=== PATIENT | male | born 1945 | race Caucasian/White ===

== ENCOUNTER 2018-03-01 15:35 | Outpatient (REF) | payer BC, SELFPAY ==
[2018-03-01 21:56] LABS: HCT 44.6 % (40.0-50.0); HGB 15.7 g/dL (13.5-17.5); Mean Corp. HGB Concentration 35.2 g/dL (32.0-36.0); Mean Corpuscular Hemoglobin 31.3 pg (27.0-33.0); Mean Corpuscular Volume 88.8 fL (80-95); Mean Platelet Volume 10.8 fL (8.0-11.0); Platelet Count 252 x1000/uL (130-400); RBC 5.02 m/cumm (4.50-6.00); RBC Distribution Width 13.3 % (11.8-14.1); White Blood Cell Count 6.36 k/cumm (4.4-10.8)
[2018-03-01 22:17] LABS: Anion Gap 7.5 mmol/L (3-11); BUN 16 mg/dL (7-18); CO2 31.5 mmol/L (21.0-32.0); CREATININE 0.98 mg/dL (0.70-1.30); Calcium 8.9 mg/dL (8.5-10.1); Chloride 96 mmol/L (98-107); Glucose 104 mg/dL (70-100); Potassium 3.5 mmol/L (3.5-5.1); Sodium 135 mmol/L (136-145); TSH (W/Ref FT4) 1.49 uIU/mL (0.358-3.74)
== END 2018-03-01 15:55 ==
LOC: NCHCN 15:35
PROVIDERS: PCP Family Medicine; Referring Provider Family Medicine; Visit Provider Family Medicine
DX: I48.91 Unspecified atrial fibrillation (principal)
CPT/HCPCS: 80048; 85027; 84443

== ENCOUNTER 2018-03-28 01:11 | Outpatient (CLI) | payer BC, SELFPAY ==
--- NOTE | 2018-04-04 15:30 | HOLTER_ITS ---
DATE OF READING: April 04, 2018 Monitor placed 48 hours. Atrial fibrillation throughout recording. Nocturnal heart rates approximately 60-80 bpm. Daytime he art rates approximately 90-110 bpm. Very frequent single PVC versus aberrantly conducted beat, 5215 total, 2.3% total beat. Nocturnal heart rates as low as 40-45 bpm, atrial fibrillation. No symptoms. Average heart rate 80 bpm, range 54-161 bpm.
== END 2018-03-28 01:31 ==
PROVIDERS: PCP Family Medicine; Visit Provider Family Medicine
DX: I48.91 Unspecified atrial fibrillation (principal); I49.3 Ventricular premature depolarization
CPT/HCPCS: 93225

== ENCOUNTER 2018-04-01 08:35 | Outpatient (CLI) | payer BC, SELFPAY | END 2018-04-01 08:55 | PROVIDERS: PCP Family Medicine; Visit Provider Family Medicine | DX: I48.91 Unspecified atrial fibrillation (principal); I49.3 Ventricular premature depolarization | CPT/HCPCS: 93226 ==

== ENCOUNTER 2018-04-05 00:08 | Outpatient (CLI) | payer BC, SELFPAY ==
--- NOTE | 2018-04-05 10:30 | MERGE_ITS ---
*[facility]* *[facility]* [address] [place] [address] Date of study: 04/05/2018 Transthoracic Echocardiography M-mode, complete 2D, complete spectral Doppler, and color Doppler *STUDY CONCLUSIONS* Summary: 1. Left ventricle: The cavity size was normal. Wall thickness was increased in a pattern of mild LVH. There was moderate asymmetric hypertrophy of the septum at 1.5 cm. Systolic function was normal. The estimated ejection fraction was 60-65%. There was no dynamic obstruction. Wall motion was normal; there were no regional wall motion abnormalities. 2. Aortic valve: Trileaflet; normal thickness, mildly calcified leaflets. There was mild to moderate regurgitation. 3. Ascending aorta: The ascending aorta was moderately dilated at 4.2 cm. 4. Mitral valve: There was mild to moderate regurgitation. 5. Left atrium: The atrium was severely dilated. 6. Right ventricle: The cavity size was normal. Wall thickness was normal. Systolic function was normal. 7. Right atrium: The atrium was dilated. *PATIENT PRESENTATION* Height: 170.2cm ((67in) ) S/D Pressure: 130 / 81 Weight: 98kg ((215.5lb) ) BSA: 2.19m^2 Test start time: 10:40 AM. Test stop time: 11:50 AM. ORDERING Sophie Reyes REFERRING Sophie Reyes PERFORMING Unknown PERFORMING [facility] ACCOUNTANT AUDITOR RT Sukhjinder AlcocerR)(MAGAN)ELLA *PROCEDURE DATA* Procedure information: The patient was identified by two identifiers. This study was interpreted by [facility]. Pertinent images and digital data are archived for permanent storage and are available for subsequent review. Comparison was made to the study of 11/05/2014. Study status: Routine. Transthoracic echocardiography. M-mode, complete 2D, complete spectral Doppler, and color Doppler. A Transthoracic Echocardiogram was performed. Scanning was performed from the parasternal, apical, subcostal, and suprasternal notch acoustic windows. Images were obtained using an [id number] cardiac ultrasound machine. Image quality was adequate. Study completion: The patient tolerated the procedure well. There were no complications. History: PMH: Atrial fibrillation. *CARDIAC ANATOMY* Left ventricle: The cavity size was normal. Wall thickness was increased in a pattern of mild LVH. There was moderate asymmetric hypertrophy of the septum at 1.5 cm. Systolic function was normal. The estimated ejection fraction was 60-65%. There was no dynamic obstruction. Wall motion was normal; there were no regional wall motion abnormalities. The study was not technically sufficient to allow evaluation of LV diastolic dysfunction due to atrial fibrillation. Aortic valve: Trileaflet; normal thickness, mildly calcified leaflets. Mobility was not restricted. Doppler: Transvalvular velocity was within the normal range. There was no stenosis. There was mild to moderate regurgitation. VTI ratio of LVOT to aortic valve: 0.64. Valve area (VTI): 2cm^2. Indexed valve area (VTI): 0.9cm^2/m^2. Peak velocity ratio of LVOT to aortic valve: 0.59. Valve area (Vmax): 1.9cm^2. Indexed valve area (Vmax): 0.8cm^2/m^2. Mean velocity ratio of LVOT to aortic valve: 0.64. Valve area (Vmean): 2cm^2. Indexed valve area (Vmean): 0.9cm^2/m^2. Mean gradient (S): 4.5mm Hg. Peak gradient (S): 7.8mm Hg. Aorta: Aortic root: The aortic root was at upper normal limits. Ascending aorta: The ascending aorta was moderately dilated at 4.2 cm. Aortic arch: The aortic arch was normal in size. Mitral valve: Structurally normal valve. Mobility was not restricted. Doppler: Transvalvular velocity was within the normal range. There was no evidence for stenosis. There was mild to moderate regurgitation. Valve area by pressure half-time: 3.7cm^2. Indexed valve area by pressure half-time: 1.7cm^2/m^2. Left atrium: The atrium was severely dilated. Right ventricle: The cavity size was normal. Wall thickness was normal. Systolic function was normal. Pulmonic valve: Structurally normal valve. Doppler: Transvalvular velocity was within the normal range. There was no evidence for stenosis. There was trivial regurgitation. Peak gradient (S): 2mm Hg. Tricuspid valve: Structurally normal valve. Doppler: Transvalvular velocity was within the normal range. There was no evidence for stenosis. There was mild regurgitation. Pulmonary artery: Pulmonary systolic pressure was within the normal range. Right atrium: The atrium was dilated. Pericardium: There was no pericardial effusion. Systemic veins: Inferior vena cava: Well visualized. The vessel was patent and normal in size. The respirophasic diameter changes were in the normal range (greater than or equal to 50%). Baseline ECG: Atrial fibrillation. Measurements Left ventricle Value Reference LV ID, ED, PLAX 5.0 cm 3.5 - 6.0 LV ID, ES, PLAX 3.6 cm 2.1 - 4.0 LV PW thickness, ED, PLAX 1.1 cm LV end-diastolic volume, 1-p A2C 68 ml LV ejection fraction, 1-p A2C 49 % LV end-diastolic volume, 1-p A4C 75 ml LV ejection fraction, 1-p A4C 49 % LV e', lateral 0.134 m/sec LV E/e', lateral 5 LV e', medial 0.064 m/sec LV E/e', medial 10 LV e', average 0.099 m/sec LV E/e', average 6 Ventricular septum Value Reference IVS thickness, ED, PLAX 1.5 cm LVOT Value Reference LVOT ID, A-P 2.0 cm LVOT area 3.1 cm^2 LVOT peak velocity, S 0.83 m/sec LVOT mean velocity, S 0.65 m/sec LVOT VTI, S 16.6 cm LVOT peak gradient, S 2.8 mm Hg LVOT mean gradient, S 1.8 mm Hg Stroke volume (SV), LVOT DP 52 ml Stroke index (SV/bsa), LVOT DP 24 ml/m^2 Aortic valve Value Reference Aortic valve peak velocity, S 1.4 m/sec Aortic valve mean velocity, S 1.02 m/sec Aortic valve VTI, S 26.0 cm Aortic mean gradient, S 4.5 mm Hg Aortic peak gradient, S 7.8 mm Hg VTI ratio, LVOT/AV 0.64 Aortic valve area, VTI 2 cm^2 Velocity ratio, peak, LVOT/AV 0.59 Aortic valve area, peak velocity 1.9 cm^2 Velocity ratio, mean, LVOT/AV 0.64 Aortic valve area, mean velocity 2 cm^2 Aortic valve area/bsa, mean velocity 0.9 cm^2/m^2 Aortic regurg velocity, ED 4.63 m/sec Aortic regurg gradient, ED 85.8 mm Hg Aorta Value Reference Aortic root ID, ED 3.7 cm Ascending aorta ID, A-P, S 4.2 cm RVOT Value Reference RVOT VTI, S 11.5 cm Left atrium Value Reference LA ID, A-P, ES 4.3 cm LA ID/bsa, A-P 2.0 cm/m^2 <=2.2 LA area, ES, A4C (H) 29.4 cm^2 8.8 - 23.4 LA area, ES, A2C 30 cm^2 LA volume/bsa, ES, 1-p A4C 53 ml/m^2 LA volume, ES, 2-p 104 ml LA volume/bsa, ES, 2-p 48 ml/m^2 LA/aortic root ratio 1.18 Mitral valve Value Reference Mitral E-wave peak velocity 0.64 m/sec Mitral deceleration time 207 ms 150 - 230 Mitral pressure half-time 60 ms Mitral valve area, PHT, DP 3.7 cm^2 Tricuspid valve Value Reference Tricuspid regurg peak velocity 1.6 m/sec Tricuspid peak RV-RA gradient 10.4 mm Hg Right atrium Value Reference RA area, ES, A4C (H) 21.2 cm^2 8.3 - 19.5 Pulmonic valve Value Reference Pulmonic peak gradient, S 2 mm Hg Legend: (L) and (H) bre values outside specified reference range. I have personally reviewed the images and have reviewed and edited the reported findings. Electronically signed by Cezar De La Cruz 04/05/2018 13:10
== END 2018-04-05 00:28 ==
PROVIDERS: PCP Family Medicine; Visit Provider Family Medicine
DX: I48.91 Unspecified atrial fibrillation (principal); I51.7 Cardiomegaly; I35.1 Nonrheumatic aortic (valve) insufficiency; I34.0 Nonrheumatic mitral (valve) insufficiency
CPT/HCPCS: 93306

== ENCOUNTER 2018-11-18 02:34 | Outpatient (CLI) | payer BC, SELFPAY ==
[2018-11-21 11:20] LABS: Lyme Ab w Rflx to Lyme Confirm Negative
== END 2018-11-18 02:54 ==
PROVIDERS: PCP Family Medicine; Visit Provider Family Medicine
DX: R21 Rash and other nonspecific skin eruption (principal); W57.XXXA Bitten or stung by nonvenomous insect and other nonvenomous arthropods, initial encounter; T14.8XXA Other injury of unspecified body region, initial encounter
CPT/HCPCS: 36415; 86618

== ENCOUNTER 2019-04-07 10:45 | Outpatient (REF) | payer BC, SELFPAY ==
[2019-04-07 19:21] LABS: Anion Gap 7.2 mmol/L (3-11); BUN 13 mg/dL (7-18); CO2 31.8 mmol/L (21.0-32.0); Calcium 9.4 mg/dL (8.5-10.1); Chloride 98 mmol/L (98-107); Glucose 92 mg/dL (70-100); Potassium 3.9 mmol/L (3.5-5.1); Sodium 137 mmol/L (136-145)
== END 2019-04-07 11:05 ==
LOC: NCHCN 10:45
PROVIDERS: PCP Family Medicine; Visit Provider Family Medicine
DX: Z00.00 Encounter for general adult medical examination without abnormal findings (principal); I48.91 Unspecified atrial fibrillation; I10 Essential (primary) hypertension; E87.6 Hypokalemia
CPT/HCPCS: 80048

== ENCOUNTER 2019-06-29 13:44 | Outpatient (REF) | payer BC, SELFPAY ==
[2019-06-29 19:37] LABS: Uric Acid 7.5 mg/dL (3.5-7.2)
== END 2019-06-29 14:04 ==
LOC: NCHCN 13:44
PROVIDERS: PCP Family Medicine; Visit Provider Specialist/Technologist Athletic Trainer
DX: M79.672 Pain in left foot (principal)
CPT/HCPCS: 84550

== ENCOUNTER 2019-10-11 08:52 | Outpatient (CLI) | payer BC, SELFPAY ==
[2019-10-12 19:17] LABS: COVID-19 RT-PCR Result Not Detected ((See Note))
== END 2019-10-11 09:12 ==
PROVIDERS: PCP Family Medicine; Visit Provider Family Medicine
DX: M79.10 Myalgia, unspecified site (principal); Z20.828 Contact with and (suspected) exposure to other viral communicable diseases
CPT/HCPCS: 87449; U0003

== ENCOUNTER 2020-05-07 12:38 | Outpatient (REF) | payer BC, SELFPAY ==
[2020-05-07 19:31] LABS: HCT 46.9 % (40.0-50.0); HGB 16.2 g/dL (13.5-17.5); MCH 31.2 pg (27.0-33.0); MCHC 34.5 % (32.0-36.0); MCV 90.2 fL (80-95); MPV 10.8 fL (8.0-11.0); Platelet Count 256 10^3/uL (130-400); RDW 12.6 % (11.8-14.1); RDW-SD 41.4 fL; WBC 5.17 10^3/uL (4.4-10.8)
[2020-05-07 19:43] LABS: ALT 31 U/L (16-63); AST 25 U/L (15-37); Alkaline Phosphatase 38 U/L (46-116); Anion Gap 7.9 mmol/L (3-11); BUN 17 mg/dL (7-18); Bilirubin, Total 0.6 mg/dL (0.2-1.0); CO2 27.1 mmol/L (21.0-32.0); Calcium 9.3 mg/dL (8.5-10.1); Chloride 99 mmol/L (98-107); Glucose 97 mg/dL (74-106); Magnesium 1.9 mg/dL (1.8-2.4); Potassium 3.6 mmol/L (3.5-5.1); Sodium 134 mmol/L (136-145); Total Protein 7.1 g/dL (6.4-8.2)
[2020-05-08 20:44] LABS: PSA, Screening 1.5 ng/mL (0.0-6.5)
== END 2020-05-07 12:58 ==
LOC: NCHCN 12:38
PROVIDERS: PCP Family Medicine; Visit Provider Family Medicine
DX: Z00.00 Encounter for general adult medical examination without abnormal findings (principal); I10 Essential (primary) hypertension; I48.91 Unspecified atrial fibrillation; Z12.5 Encounter for screening for malignant neoplasm of prostate
CPT/HCPCS: 80053; 84153; 85027; 83735

== ENCOUNTER 2021-05-15 11:30 | Outpatient (REF) | payer MEDICARE, SELFPAY ==
[2021-05-15 15:02] LABS: MCH 31.4 pg (27.0-33.0); MCHC 34.9 % (32.0-36.0); MCV 90.1 fL (80-95); Platelet Count 226 10^3/uL (130-400); RBC 4.77 10^6/uL (4.36-5.78); RDW 12.5 % (11.8-14.1); RDW-SD 41.1 fL; WBC 4.97 10^3/uL (4.4-10.8)
[2021-05-15 15:15] LABS: ALT 32 U/L (16-63); AST 23 U/L (15-37); Albumin 3.8 g/dL (3.4-5.0); Alkaline Phosphatase 41 U/L (46-116); Anion Gap 8.7 mmol/L (3-11); BUN 14 mg/dL (7-18); Bilirubin, Total 0.5 mg/dL (0.2-1.0); CO2 31.3 mmol/L (21.0-32.0); Calculated LDL 104 mg/dL (<100); Chloride 98 mmol/L (98-107); Cholesterol 174 mg/dL (<200); Glucose 97 mg/dL (74-106); HDL Cholesterol 47 mg/dL (40-60); Potassium 3.3 mmol/L (3.5-5.1); Sodium 138 mmol/L (136-145); Total Protein 6.9 g/dL (6.4-8.2); Triglyceride 115 mg/dL (<150)
== END 2021-05-15 11:31 | disposition home or self-care (01) ==
LOC: NCHCN 11:30
PROVIDERS: PCP Family Medicine; Visit Provider Family Medicine
DX: I10 Essential (primary) hypertension (principal); E87.6 Hypokalemia; I48.91 Unspecified atrial fibrillation
CPT/HCPCS: 80053; 80061; 85027

== ENCOUNTER 2022-04-15 18:01 | Outpatient (REF) | payer MEDICARE, SELFPAY ==
[2022-04-17 18:52] LABS: Anaplasma phagocytophilum Negative (Negative); B. miyamotoi PCR Negative (Negative); Babesia divergens/MO-1 Negative (Negative); Babesia duncani Negative (Negative); Babesia microti Negative (Negative); Ehrlichia chaffeensis Negative (Negative); Ehrlichia ewingii/canis Negative (Negative); Ehrlichia muris eauclairensis Negative (Negative)
== END 2022-04-15 18:02 | disposition home or self-care (01) ==
LOC: NCHCN 18:01
PROVIDERS: PCP Family Medicine; Visit Provider Family Medicine
DX: T14.8XXA Other injury of unspecified body region, initial encounter (principal); W57.XXXA Bitten or stung by nonvenomous insect and other nonvenomous arthropods, initial encounter
CPT/HCPCS: 87798; 86618

== ENCOUNTER 2022-04-20 18:05 | Outpatient (REF) | payer MEDICARE, SELFPAY ==
[2022-04-22 10:42] LABS: Lyme Ab w Rflx to Lyme Confirm Negative (Negative)
[2022-04-24 22:59] LABS: Anaplasma phagocytophilum Negative (Negative); B. miyamotoi PCR Negative (Negative); Babesia divergens/MO-1 Negative (Negative); Babesia duncani Negative (Negative); Babesia microti Negative (Negative); Ehrlichia chaffeensis Negative (Negative); Ehrlichia ewingii/canis Negative (Negative); Ehrlichia muris eauclairensis Negative (Negative)
== END 2022-04-20 18:06 | disposition home or self-care (01) ==
LOC: NCHCN 18:05
PROVIDERS: PCP Family Medicine; Visit Provider Family Medicine
DX: T14.8XXA Other injury of unspecified body region, initial encounter (principal); W57.XXXA Bitten or stung by nonvenomous insect and other nonvenomous arthropods, initial encounter
CPT/HCPCS: 87798; 86618

== ENCOUNTER 2022-07-17 13:01 | Outpatient (REF) | payer MEDICARE, SELFPAY ==
--- OUTSIDE RECORDS SUMMARY | 2022-07-17 13:04 | XMS_ITS | Continuity of Care Document ---
Author Name Unknown Organization [facility] Ambulatory Clinics Address [address] [place] [address] Encounter [facility] NBR [id number] Date(s): 03/14/22 - 03/14/22 [facility] Ambulatory Clinics [address] [place], [place] [address] Encounter Diagnosis Paroxysmal atrial fibrillation(Discharge Diagnosis) - 03/14/22 Respiratory infection, upper(Discharge Diagnosis) - 03/14/22 Discharge Disposition: Home or Self Care Attending Physician: Aury Keene PA-C Allergies, Adverse Reactions, Alerts Substance Reaction Severity Status Percocet Severe Active Vicodin Severe Active Latex Unknown Active Functional Status 03/14/22 Other exposure to Infectious Disease Non e Medications hydroCHLOROthiazide 25 mg oral tablet 25 mg = 1 tab, Oral, BID, 0 Refill(s) Start Date: 03/14/22 Status: Ordered omeprazole 0 Refill(s) Start Date: 03/14/22 Status: Ordered Pradaxa 150 mg oral capsule 150 mg 1 cap, Oral, BID, # 60 cap, 0 Refill(s) Start Date: 03/14/22 Status: Ordered Results Laboratory List Name Date SARS-CoV-2 (COVID-19) Antigen (Binax) PO CT 03/14/22 Most recent to oldest [Reference Range]: 1 Symptomatic as defined by CDC? Yes *NA* (03/14/22 10:31 AM) SARS-CoV-2 (COVID-19) Ag (Binax) [Negati ve] Negative (03/14/22 10:31 AM) Vital Signs Most recent to oldest [Reference Range]: 1 Temperature Tympanic [36.6-37.9 Deg C] 3 6.6 Deg C (03/14/22 10:34 AM) Peripheral Pulse Rate [60-100 bpm] 78 bp m (03/14/22 10:34 AM) Blood Pressure [90-140/60-90 mmHg] 130/8 5mmHg (03/14/22 10:34 AM) Weight 82.10 kg (03/14/22 10:34 AM) Weight Measured (lbs) 180.999 lb (03/14/22 10:34 AM) Social History Social History Type Response Tobacco Never tobacco user T obacco Use:. Sex Hospital Discharge Instructions Patient Education 03/14/2022 09:55:31 Atrial Fibrillation, Iiar-ge-Ilsm Atrial Fibrillation Atrial fibrillation is a type of heartbeat that is irregular or fast. If you have this condition, your heart beats without any order. This makes it hard for your heart to pump blood in a normal way. Atrial fibrillation may come and go, or it may become a long-lasting problem. If this condition is not treated, it can put you at higher risk for stroke, heart failure, and other heart problems. What are the causes? This condition may be caused by diseases that damage the heart. They include: ??? High blood pressure. ??? Heart failure. ??? Heart valve disease. ??? Heart surgery. Other causes include: ??? Diabetes. ??? Thyroid disease. ??? Being overweight. ??? Kidney disease. Sometimes the cause is not known. What increases the risk? You are more likely to develop this condition if: ??? You are older. ??? You smoke. ??? You exercise often and very hard. ??? You have a family history of this condition. ??? You are a man. ??? You use drugs. ??? You drink a lot of alcohol. ??? You have lung conditions, such as emphysema, pneumonia, or COPD. ??? You have sleep apnea. What are the signs or symptoms? Common symptoms of this condition include: ??? A feeling that your heart is beating very fast. ??? Chest pain or discomfort. ??? Feeling short of breath. ??? Suddenly feeling light-headed or weak. ??? Getting tired easily during activity. ??? Fainting. ??? Sweating. In some cases, there are no symptoms. How is this treated? Treatment for this condition depends on underlying conditions and how you feel when you have atrialfibrillation. They include: ??? Medicines to: ??? Prevent blood clots. ??? Treat heart rate or heart rhythm problems. ??? Using devices, such as a pacemaker, to correct heart rhythm problems. ??? Doing surgery to remove the part of the heart that sends bad signals. ??? Closing an area where clots can form in the heart (left atrial appendage). In some cases, your doctor will treat other underlying conditions. Follow these instructions at home: Medicines ??? Take yzav-kvl-[id number] and prescription medicines only as told by your doctor. ??? Do not take any new medicines without first talking to your doctor. ??? If you are taking blood thinners: ??? Talk with your doctor before you take any medicines that have aspirin or NSAIDs, such as ibuprofen, in them. ??? Take your medicine exactly as told by your doctor. Take it at the same time each day. ??? Avoid activities that could hurt or bruise you. Follow instructions about how to prevent falls. ??? Wear a bracelet that says you are taking blood thinners. Or, carry a card that lists what medicines you take. Lifestyle ??? Do not use any products that have nicotine or tobacco in them. These include cigarettes, e-cigarettes, and chewing tobacco. If you need help quitting, ask your doctor. ??? Eat heart-healthy foods. Talk with your doctor about the right eating plan for you. ??? Exercise regularly as told by your doctor. ??? Do not drink alcohol. ??? Lose weight if you are overweight. ??? Do not use drugs, including cannabis. General instructions ??? If you have a condition that causes breathing to stop for a short period of time (apnea), treatit as told by your doctor. ??? Keep a healthy weight. Do not use diet pills unless your doctor says they are safe for you. Diet pills may make heart problems worse. ??? Keep all follow-up visits as told by your doctor. This is important. Contact a doctor if: ??? You notice a change in the speed, rhythm, or strength of your heartbeat. ??? You are taking a blood-thinning medicine and you get more bruising. ??? You get tired more easily when you move or exercise. ??? You have a sudden change in weight. Get help right away if: ??? You have pain in your chest or your belly (abdomen). ??? You have trouble breathing. ??? You have side effects of blood thinners, such as blood in your vomit, poop (stool), or pee (urine), or bleeding that cannot stop. ??? You have any signs of a stroke. BE FAST is an easy way to remember the main warning signs: ??? B - Balance. Signs are dizziness, sudden trouble walking, or loss of balance. ??? E - Eyes. Signs are trouble seeing or a change in how you see. ??? F - Face. Signs are sudden weakness or loss of feeling in the face, or the face or eyelid drooping on one side. ??? A - Arms. Signs are weakness or loss of feeling in an arm. This happens suddenly and usually onone side of the body. ??? S - Speech. Signs are sudden trouble speaking, slurred speech, or trouble understanding what people say. ??? T - Time. Time to call emergency services. Write down what time symptoms started. ??? You have other signs of a stroke, such as: ??? A sudden, very bad headache with no known cause. ??? Feeling like you may vomit (nausea). ??? Vomiting. ??? A seizure. These symptoms may be an emergency. Do not wait to see if the symptoms will go away. Get medical help right away. Call your local emergency services (911 in the [place] Do not drive yourself to the hospital. Summary ??? Atrial fibrillation is a type of heartbeat that is irregular or fast. ??? You are at higher risk of this condition if you smoke, are older, have diabetes, or are overweight. ??? Follow your doctor's instructions about medicines, diet, exercise, and follow-up visits. ??? Get help right away if you have signs or symptoms of a stroke. ??? Get help right away if you cannot catch your breath, or you have chest pain or discomfort. This information is not intended to replace advice given to you by your health care provider. Make sure you discuss any questions you have with your health care provider. Document Revised: 11/15/2019 Document Reviewed: 11/15/2019 [employer] Patient Education ?? [employer]
--- OUTSIDE RECORDS SUMMARY | 2022-07-17 13:06 | XMS_ITS ---
Author Name Franky, Rossy Address [address], [place] [id number] Organization [facility] Address [address], [place] [id number] Care Team Providers Care Combustion Analyst Name Role Phone Jeremías Wilkinssharri Unavailable [phone] PROBLEMS Type Condition ICD9-CM Code XVI42-WR Code Onset Dates Condition Status SNOMED Code Problem Diverticulosis K57.90 Active 967697441 Problem History of adenomatous polyp of colon Z86.010 Active 210144576 Problem Colon, diverticulosis K57.30 Active 451299250 ALLERGIES Substance Reaction Event Type Date Status Lisinopril cough Drug Allergy Feb, Active cold temperature Unknown Non Drug Allergy Feb, Active ENCOUNTERS Encounter Location Date Diagnosis [facility] [address] [place], [place] [id number] Feb, Cellulitis L03.90 [facility] [address], [place] [id number] Jan, COVID-19 U07.1 and Nausea R11.0 [facility] [address], [place] [id number] Nov, Tick bite W57.XXXA [facility] [address], [place] [id number] October, History of adenomatous polyp of colon Z86.010 and Diverticulosis K57.90 [facility] [address] [facility] [address] [place], [place] [id number] October, [facility] [address], [place] [id number] Aug, History of colon polyps Z86.010 [facility] [address] [id number] Aug, [facility] [address] [id number] Aug, Gastroenterology [address] [id number] Aug, Gastroenterology [address] [id number] Aug, [facility] [address] [place], [place] [id number] Jul, Ankle pain M25.579 [facility] [address] [id number] Jun, [facility] [address] [place], [place] [id number] Mar, Encounter for screening laboratory testing for COVID-19 virus Z20.822 and Viral upper respiratory tract infection J06.9 [facility] [address] [id number] Jan, Acute pain of right knee M25.[address] [place] [id number] Nov, [facility] [address] [place], [place] [id number] Sep, Herpes zoster B02.[address] [place] [id number] May, IMMUNIZATIONS No Known Immunizations SOCIAL HISTORY Never Assessed REASON FOR REFERRAL FUNCTIONAL STATUS PLAN OF CARE VITAL SIGNS Height 67 in 2022-02-24 Height 67 in 2022-01-20 Height 67 in 2021-11-06 Height 67 in 2021-07-16 Height 67 in 2021-03-26 Height 67 in 2021-01-25 Height 67 in 2020-09-12 Weight 181 lbs 2022-02-24 Weight 183 lbs 2022-01-20 Weight 188 lbs 2021-11-06 Weight 210 lbs 2021-07-16 Weight 210 lbs 2021-03-26 Weight 214 lbs 2021-01-25 Weight 217 lbs 2020-09-12 Temperature 97.8 degrees Fahrenheit Temperature 99.3 degrees Fahrenheit Temperature 98.2 degrees Fahrenheit Temperature 97.4 degrees Fahrenheit Temperature 98.0 degrees Fahrenheit Temperature 97.5 degrees Fahrenheit Temperature 97.9 degrees Fahrenheit Heart Rate 58 /min 2022-02-24 Heart Rate 75 /min 2022-01-20 Heart Rate 70 /min 2021-11-06 Heart Rate 55 /min 2021-07-16 Heart Rate 86 /min 2021-03-26 Heart Rate 74 /min 2021-01-25 Heart Rate 72 /min 2020-09-12 Oximetry 98 2022-01-20 Oximetry 97 2021-11-06 Oximetry 98 2021-07-16 Oximetry 96 2021-03-26 Oximetry 97 2021-01-25 Respiratory Rate 14 /min 2021-07-16 BMI 28.35 kg/m2 2022-02-24 BMI 28.66 kg/m2 2022-01-20 BMI 29.44 kg/m2 2021-11-06 BMI 32.89 kg/m2 2021-07-16 BMI 32.89 kg/m2 2021-03-26 BMI 33.51 kg/m2 2021-01-25 BMI 33.98 kg/m2 2020-09-12 Blood pressure systolic 145 mm Hg Blood pressure diastolic 92 mm Hg 2022-02 MEDICATIONS Medication Instructions Dosage Frequency Start Date End Date Duration Status Paxlovid (300/100) 20 x 150 MG & 10 x 100MG Orally BID as directed 12h Jan, 5 days Not-Stevenson ing Tadalafil 20 MG 1 tablet 30 day( s) Active Fiber - as directed Active Omeprazole 20 MG Orally Once a day 1 capsule 30 minutes before morning meal 24h 30 day(s) Active Pradaxa 110 MG Orally Twice a day 1 capsule 12h Active hydroCHLOROthiazide 25 MG Orally Once a day 1 tablet in the morning 24h 30 day(s) Active Ondansetron HCl 4 MG Orally TID PRN 1 tablet Jan, 3 day(s) Not-Stevenson ing Multivitamin - Orally Once a day 1 tablet 24h 30 day(s) Not-Stevenson ing PROCEDURES Procedure Date Ordered Result Body Site [facility] - [facility] OUT PT CLINIC COLLECTION FOR SARS COV O ct 2020 [facility] - X-RAY EXAM OF ANKLE; 3+ VIEWS Jul 16, 2021 SIGMOIDOSCOPY DIAGNOST August 28, 2021 [facility] - [facility] ANTIGEN DETECTION SARS-COVID OPTICAL Mar 2 2020 [facility] - X-RAY EXAM OF KNEE- 1 OR 2 VIEWS Jan 25, 2021 [facility] OUT PT CLINIC COLLECTION FOR SARS COV A ug 2021 [facility] - [facility] ANTIGEN DETECTION SARS-COVID OPTICAL Jan 052021 [facility] - COVID 19 TESTING Jan 20, 2022 COLONOSCOPY & COLD BIOPSY POLYPECTOMY October 23, 2021 [facility] - [facility] OUT PT CLINIC COLLECTION FOR SARS COV A ug 2021 RESULTS Name Result Date Reference Range COVID 19 (POS) [facility]axNow Ag Card 2022-01-20 SARS-CoV-2 negative COVID 19 [facility] PCR ([facility]for[facility]) AUTHORIZED ONLY 2022-01-20 SARS-CoV-2, PCR DETECTED NOT DETECTED COV 4PLX COMMENT This test has been a uthorized by FDA under an EUA for use by authorized laboratories. False negative results may occur if virus is present at levels below the analytical limit of detection. SURGICAL PATH 2021-10-22 [facility] XR ANKLE 3 VIEWS RIGHT 2021-07-16 COVID 19 (POS) [facility] Ag Card 2021-03-26 SARS-CoV-2 negative [facility] XR KNEE 2 VIEW RIGHT 2021-01-25 REASON FOR VISIT [facility] - BUG BITE, keren exposure-tested neg at home has sore throat congestion headache-blue chevy pickup, call [phone], Point of Service COVID 19 Screening, Point of Service COVID 19 Screening, tick bite right leg, pain in knuckle on left hand, pt noticed tick bite this morning on right leg - pt r eports bite is painful and red (pain level 4), pt reports pain in knuckle on left hand that has been going on and off since wednesday - reports that it is sharp and cannot pick things up (pain level 9 when it occurs), GI- COLO, Pt Notified- Send Prep 10/17, [facility]- COLO, FAXED CLEARANCE 08/29 , prep questions, keren right ankle pain, colo lvm 2/4 , Thinks sinus infection, Point of Service COVID 19 Screening, [facility] right knee pain, [facility] neck pain, Procedure scheduling LM06/03/PT CALLED BACK, ORTH-L HIP Insurance Providers Health Insurance Type Health Plan Insurance Address Health Plan Insurance Phone Health Plan Insurance Name Health Plan Coverage Dates Member ID Patient Relationship to Subscriber Patient Address Patient Phone Patient Name Patient Date of Subscriber ID Subscriber Name Subscriber Date of Group No [place] [address] [facility] [id number] [place] self Manuelito Deng [id number] [facility] MCR ADV [address] [address] [facility] [id number] [facility] MCR ADV self [facility] [id number] [facility] [address] [facility] [id number] [facility] Manuelito Deng [id number] MEDICARE [address] [facility] [address] MEDICARE self Manuelito Deng [id number]
[2022-07-17 16:04] LABS: Anion Gap 9.7 mmol/L (3-11); BUN 15 mg/dL (7-18); CO2 27.3 mmol/L (21.0-32.0); CREATININE 0.8 mg/dL (0.70-1.30); Calcium 9.3 mg/dL (8.5-10.1); Chloride 99 mmol/L (98-107); Estimated GFR 92.87 (mL/min/1.73m2); Glucose 94 mg/dL (74-106); Potassium 3.6 mmol/L (3.5-5.1); Sodium 136 mmol/L (136-145)
[2022-07-20 10:19] LABS: PSA, Screening 1.8 ng/mL (<=6.5)
== END 2022-07-17 13:02 | disposition home or self-care (01) ==
LOC: NCHCN 13:01
PROVIDERS: PCP Family Medicine; Visit Provider Family Medicine
DX: I10 Essential (primary) hypertension (principal); F43.20 Adjustment disorder, unspecified; K27.9 Peptic ulcer, site unspecified, unspecified as acute or chronic, without hemorrhage or perforation; I48.91 Unspecified atrial fibrillation; Z12.5 Encounter for screening for malignant neoplasm of prostate
CPT/HCPCS: 80048; 84153

== ENCOUNTER 2023-01-25 08:52 | Outpatient (REF) | payer MEDICARE, SELFPAY ==
[2023-01-25 16:54] LABS: Abs Immature Grans 0.01 10^3/uL (0.0-0.06); Absolute Basophil Count 0.04 10^3/uL (0.0-0.2); Absolute Eosinophil Count 0.08 10^3/uL (0.0-0.7); Absolute Lymphocyte Count 1.95 10^3/uL (1.2-3.4); Absolute Monocyte Count 0.42 10^3/uL (0.1-0.8); Absolute Neutrophil Count 2.61 10^3/uL (1.2-6.7); Basophils % 0.8; Eosinophils % 1.6; HCT 41.8 % (40.0-50.0); Immature Grans % 0.2; Lymphocytes % 38.2; MCH 30.9 pg (27.0-33.0); MCHC 35.9 % (32.0-36.0); MCV 86 fL (80-95); MPV 9.8 fL (8.0-11.0); Monocytes % 8.2; Platelet Count 295 10^3/uL (130-400); RBC 4.85 10^6/uL (4.36-5.78); RDW 12.2 % (11.8-14.1); RDW-SD 38.5 fL; WBC 5.11 10^3/uL (4.4-10.8)
[2023-01-25 17:19] LABS: Anion Gap 8.2 mmol/L (3-11); BUN 12 mg/dL (7-18); CO2 27.8 mmol/L (21.0-32.0); CREATININE 0.8 mg/dL (0.70-1.30); Calcium 9.5 mg/dL (8.5-10.1); Chloride 96 mmol/L (98-107); Estimated GFR 92.29 (mL/min/1.73m2); Glucose 102 mg/dL (74-106); Potassium 3.5 mmol/L (3.5-5.1); Sodium 132 mmol/L (136-145)
== END 2023-01-25 08:53 | disposition home or self-care (01) ==
LOC: NCHCN 08:52
PROVIDERS: PCP Family Medicine; Visit Provider Family Medicine
DX: I10 Essential (primary) hypertension (principal); Z01.818 Encounter for other preprocedural examination; Z01.812 Encounter for preprocedural laboratory examination
CPT/HCPCS: 80048; 85025

== ENCOUNTER 2023-02-09 13:54 | Outpatient (REF) | payer MEDICARE, SELFPAY ==
[2023-02-09 18:21] LABS: Anion Gap 9.1 mmol/L (3-11); BUN 11 mg/dL (7-18); CO2 25.9 mmol/L (21.0-32.0); CREATININE 0.9 mg/dL (0.70-1.30); Calcium 9.5 mg/dL (8.5-10.1); Chloride 95 mmol/L (98-107); Estimated GFR 89.07 (mL/min/1.73m2); Glucose 106 mg/dL (74-106); Potassium 3.6 mmol/L (3.5-5.1); Sodium 130 mmol/L (136-145)
== END 2023-02-09 13:55 | disposition home or self-care (01) ==
LOC: NCHCN 13:54
PROVIDERS: PCP Family Medicine; Visit Provider Family Medicine
DX: E87.1 Hypo-osmolality and hyponatremia (principal); I10 Essential (primary) hypertension
CPT/HCPCS: 80048

== ENCOUNTER 2023-02-15 13:16 | Outpatient (REF) | payer MEDICARE, SELFPAY ==
[2023-02-15 16:12] LABS: Anion Gap 8.1 mmol/L (3-11); BUN 11 mg/dL (7-18); CO2 26.9 mmol/L (21.0-32.0); CREATININE 0.8 mg/dL (0.70-1.30); Chloride 100 mmol/L (98-107); Estimated GFR 92.29 (mL/min/1.73m2); Glucose 104 mg/dL (74-106); Potassium 3.9 mmol/L (3.5-5.1); Sodium 135 mmol/L (136-145)
== END 2023-02-15 13:17 | disposition home or self-care (01) ==
LOC: NCHCN 13:16
PROVIDERS: PCP Family Medicine; Visit Provider Nurse Practitioner Family
DX: I10 Essential (primary) hypertension (principal); R35.0 Frequency of micturition
CPT/HCPCS: 80048; 87086

== ENCOUNTER 2023-03-10 10:12 | Outpatient (REF) | payer MEDICARE, SELFPAY | END 2023-03-10 10:13 | disposition home or self-care (01) | LOC: NCHCN 10:12 | PROVIDERS: PCP Family Medicine; Visit Provider Family Medicine | DX: R35.0 Frequency of micturition (principal) | CPT/HCPCS: 87086 ==

== ENCOUNTER 2023-07-06 16:25 | Outpatient (REF) | payer MEDICARE, SELFPAY ==
[2023-07-07 17:59] LABS: PSA, Screening 1.9 ng/mL (<=6.5)
== END 2023-07-06 16:26 | disposition home or self-care (01) ==
LOC: NCHCN 16:25
PROVIDERS: PCP Family Medicine; Visit Provider Family Medicine
DX: Z12.5 Encounter for screening for malignant neoplasm of prostate (principal)
CPT/HCPCS: 84153

== ENCOUNTER 2024-10-06 10:07 | Outpatient (REF) | payer MEDICARE, SELFPAY ==
[2024-10-06 15:12] LABS: HCT 43.6 % (40.0-50.0); HGB 14.7 g/dL (13.5-17.5)
[2024-10-06 15:57] LABS: ALT 22 U/L (16-63); AST 22 U/L (15-37); Albumin 3.6 g/dL (3.4-5.0); Alkaline Phosphatase 53 U/L (46-116); Anion Gap 4.4 mmol/L (3-11); BUN 14 mg/dL (7-18); Bilirubin, Total 0.7 mg/dL (0.2-1.0); CO2 30.6 mmol/L (21.0-32.0); CREATININE 0.9 mg/dL (0.70-1.30); Calculated LDL 60 mg/dL (<100); Chloride 102 mmol/L (98-107); Cholesterol 130 mg/dL (<200); Estimated GFR 87.96 (mL/min/1.73m2); Glucose 80 mg/dL (74-106); HDL Cholesterol 63 mg/dL (>or=40); Magnesium 1.8 mg/dL (1.8-2.4); Potassium 4.3 mmol/L (3.5-5.1); Sodium 137 mmol/L (136-145); Total Protein 6.7 g/dL (6.4-8.2); Triglyceride 35 mg/dL (<150)
[2024-10-06 16:34] LABS: Hemoglobin A1C 5.2 % (<5.7)
[2024-10-06 22:39] LABS: PSA, Screening 2.1 ng/mL (<=6.5)
== END 2024-10-06 10:08 | disposition home or self-care (01) ==
LOC: NCHCN 10:07
PROVIDERS: PCP Family Medicine; Visit Provider Family Medicine
DX: I10 Essential (primary) hypertension (principal); Z13.1 Encounter for screening for diabetes mellitus; Z12.5 Encounter for screening for malignant neoplasm of prostate
CPT/HCPCS: 80053; 80061; 84153; 83036; 83735; 85014; 85018